=== PATIENT | female | born 1950 | race Caucasian/White ===

== ENCOUNTER 2016-12-17 07:00 | Inpatient (IN) | payer OTHER, MEDICARE ==
[~2016-12-17] VITALS: Ht 157.5 cm; Wt 92.5 kg
[~2016-12-17 07:00] MED LIST: ACIPHEX20 M1 PO; ADVAIR 250-501 EACH INH; ALLOPURINOL100 M1 PO; ASPIRIN EC81 M1 PO; CYMBALTA60 M1 PO; FERROUS SULFAT325 M3 PO; HYDROCHLOROTHIA25 M1 PO; LIPITOR10 M1 PO; LISINOPRIL20 M1 PO; PROAIR HFA8.5 GM INH; SINGULAIR10 M1 PO; SULINDAC PO; SYNTHROID25 MCG PO; TOPROL XL25 M1 PO
[2016-12-17] MEDS ORDERED: METOPROLOL SUCC25 M1 PO (14:47)
--- NOTE | 2016-12-17 15:21 | Admission Core Measures ---
Admission Meds I reviewed the following Meds: Current Medications Sig/[place] Start time Last Medication Dose Stop Time Status Admin Acetaminophen 975 MG ONCE 12/17 0000 NR (Tylenol) 12/17 2358 Albuterol Sulfate 2 PUF Q4-6 PRN PRN 12/17 1445 AC (Ventolin) Allopurinol 100 MG DAILY 12/18 1000 AC (Zyloprim) Atorvastatin Calcium 10 MG DAILY 12/18 1000 AC (Lipitor) Budesonide/ 2 PUF BID 12/17 2200 AC Formoterol Fumarate (Symbicort) Cefazolin Sodium 2,000 MG ONCE 12/17 0000 NR (Kefzol-Ancef Inj) 12/17 2358 Duloxetine HCl 60 MG DAILY 12/18 1000 AC (Cymbalta) Ferrous Sulfate 325 MG BID 12/17 2200 AC (Feosol) Hydrochlorothiazide 25 MG DAILY 12/18 1000 AC (Hydrodiuril) Levothyroxine Sodium 0.025 MG DAILY 12/18 1000 AC (Synthroid) Lisinopril 20 MG DAILY 12/18 1000 AC (Prinivil) Metoprolol Tartrate 12.5 MG DAILY 12/18 1000 AC (Lopressor) Montelukast Sodium 10 MG DAILY 12/18 1000 AC (Singulair) Omeprazole 20 MG BID 12/17 2200 AC (Prilosec) Oxycodone HCl 10 MG ONCE 12/17 0000 NR (Roxicodone) 12/17 2358 Acute Coronary Syndrome Inclusion Criteria ACS Diagnosis No Inpatient Core Measures LDL Reminder: If No, please order W/I first 24hr of stay Congestive Heart Failure Inclusion Criteria CHF Diagnosis No Cerebrovascular accident Inclusion Criteria CVA/TIA Diagnosis No Inpatient Core Measures Bedside Swallow Eval Reminder: If BSE failed, place ST order Antithrombotic Reminder: Order Antithrombotic Medication by end of day 2 Antithrombotic Reminder: Document Reason Antithrombotic Not ordered by end of day 2 AFIB/Flutter Reminder: If Present, add to problem list AFIB/Flutter Reminder: Order Anticoag Medication for pts with AFIB/Flutter Atherosclerosis Reminder: If Present, add to problem list LDL Reminder: If No, please order W/I first 24hr of stay PT Order Reminder: If No, please order Venous thromboembolism Inpatient Core Measures VTE Risk Factors: Age > 40, Surgery No Mech VTE prophylaxis d/t No contraindications No VTE Pharm Prophylaxis d/t No contraindications Inclusion Criteria - Per Current guidelines, there needs to be overlap - treatment for the first 5 days of Warfarin therapy. - Parenteral Anticoagulation (IV or SC) needs to be - given along with Warfarin therapy. VTE Diagnosis No VTE Type NONE VTE Confirmed by (Test) NONE Problem List As ranked by this Provider includes Assessment & Plan 1. Unilateral primary osteoarthritis, right knee HOME MEDS Home Med List Albuterol Sulfate (Proair Hfa) 90 MCG HFA.AER.AD 2 PUF INH Q4-6 PRN PRN ASTHMA (Reported) Allopurinol 100 MG TABLET 1 TAB PO DAILY GOUT (Reported) Aspirin (Ecotrin*) 81 MG TABLET.DR 1 TAB PO DAILY PROPHO (Reported) Atorvastatin Calcium (Lipitor) 10 MG TABLET 1 TAB PO DAILY CHOLESTEROL ( Reported) Duloxetine HCl (Cymbalta) 60 MG CAPSULE.DR 1 CAP PO DAILY PAIN (Reported) Ferrous Sulfate 325 MG (65 MG IRON) TABLET 1 TAB PO BID ANEMIA (Reported) Fluticasone/Salmeterol (Advair 250-50 Diskus) 250 MCG-50 MCG/DOSE BLST.W.DEV 1 PUF INH DAILY AASTHMA (Reported) Hydrochlorothiazide 25 MG TABLET 1 TAB PO DAILY HTN (Reported) Levothyroxine Sodium (Synthroid) 25 MCG TABLET 1 TAB PO DAILY HYPOTHYROID ( Reported) Lisinopril 20 MG TABLET 1 TAB PO DAILY HTN (Reported) Metoprolol Succinate 25 MG TAB 0.5 TAB PO DAILY HTN (Reported) Montelukast Sodium (Singulair) 10 MG TABLET 1 TAB PO DAILY ASTHMA (Reported) Rabeprazole Sodium (Aciphex) 20 MG TABLET.DR 1 TAB PO BID GERD (Reported) [SULINDAC] 200 MG PO BID INFLAMMATION (Reported) Discontinued Medications Metoprolol Succ XL (Toprol XL) 25 MG TAB 0.5 TAB PO DAILY HTN (Reported) Discontinued reason: Pt Decision, not taking
[2016-12-17] MEDS ORDERED: DILAUDID2 M1 PO (15:23)
[2016-12-17] MEDS ORDERED: MIRALAX17 G1 PO (15:23)
[2016-12-17] MEDS ORDERED: ASPIRIN EC325 M2 PO (15:23)
[2016-12-17] MEDS ORDERED: COLACE100 M1 PO (15:23)
--- NOTE | 2016-12-17 15:27 | Patient Discharge Instructions ---
Discharge Instructions General Discharge Information You were seen/treated for: Right knee pain related to unilateral primary osteoarthritis You had these procedures: Right total knee replacement Watch for these problems: Increasing pain despite the use of pain medication Increasing redness, warmth or swelling Drainage of any type from incision Inability to bear weight on operative leg Persistent nausea and vomiting Fever greater than 101.5 degrees Do not soak the wound: Yes No bath, but you may shower: Yes Other wound care: Please keep wound clean and dry. No ointments or lotions of any type on or near incision at any time. No exceptions. Your dressing will be changed by your nurse on the second day after your surgery. Daily dry dressing changes are recommended each day thereafter. Do not soak your wound in a bath at any time until otherwise indicated by your surgeon. You may shower, please dry wound immediately after shower with a clean towel. Special Instructions: Aspirin: You are taking this medication to help prevent blood clot formation. Please take with food to protect your stomach lining. Please take as directed. Constipation: Pain medication can cause constipation. Dr. Rosen has recommended that you take Colace and miralax each day. You may discontinue this medication if you develop loose stool or diarrhea. If you wish to continue this medication, it is available over the counter. If you are unable to move your bowels after several days, if you are unable to pass gas and are developing bloating, nausea, or vomiting as a result, please contact your doctor. Diet Continue normal diet: Yes Recommended Diet: Regular Activity Full Activity/No Limits: No Activity Self Limited: Yes Pounds, do NOT lift more than: 10 Activity Limited to: Weight bear as tolerated Acute Coronary Syndrome Inclusion Criteria At DC or during hospital stay patient has or had the following: ACS DIAGNOSIS No Discharge Core Measures Meds if any: Prescribed or Continued at Discharge Meds if any: NOT Prescribed or Continued at Discharge Congestive Heart Failure Inclusion Criteria At DC or during hospital stay patient has or had the following: CHF DIAGNOSIS No Discharge Core Measures Meds if any: Prescribed or Continued at Discharge Meds if any: NOT Prescribed or Continued at Discharge Cerebrovascular accident Inclusion Criteria At DC or during hospital stay patient has or had the following: CVA/TIA Diagnosis No Discharge Core Measures Meds if any: Prescribed or Continued at Discharge Meds if any: NOT Prescribed or Continued at Discharge Venous thromboembolism Inclusion Criteria VTE Diagnosis No VTE Type NONE VTE Confirmed by (Test) NONE Discharge Core Measures - Per Current guidelines, there needs to be overlap - treatment for the first 5 days of Warfarin therapy. - If discharged on Warfarin prior to 5 days of - overlap therapy, the patient will need to be - assessed for post discharge needs including - *Post discharge parental anticoagulation - *Warfarin and/or parental anticoagulation education - *Follow up date to check INR post discharge At least 5 days overlap therapy as Inpatient No Meds if any: Prescribed or Continued at Discharge Note: Overlap Therapy is Warfarin and Anticoagulant Meds if any: NOT Prescribed or Continued at Discharge
--- NOTE | 2016-12-17 15:28 | Surgical Discharge Summary ---
Visit Information Visit Dates Admission Date: 12/17/16 Discharge Date: 12/20/16 History of Present Illness Chief Complaint: Right knee pain related to unilateral primary osteoarthritis Surgical History Pertinent Surgical History: knee replacement Review of Systems: see h&p Hospital Course Course Attending Physician: EDINSON SMITH MD Primary Care Physician: ROSIE SIMON,Bradley Hospital Course: Patient was admitted to the hospital for an elective total joint replacement. The procedure was tolerated well and patient was transferred to a general surgical floor. Diet was advanced and tolerated, and the patient voided spontaneously. The patient was evaluated and treated by physical therapy. At the time of hospital discharge, the vital signs were stable, neurovascular status was intact, and pain was controlled with the use of oral pain medications. The patient was discharged to the [facility] on post-op day#3. Complications: None Allergies: Coded Allergies: Sulfa (Sulfonamide Antibiotics) (Severe, HIVES 12/08/16) erythromycin base (Severe, HIVES 12/08/16) Disposition Summary Disposition Principal Diagnosis: Right knee unilateral primary osteoarthritis Additional Diagnosis: None Discharge Disposition: SNF Discharge Instructions General Discharge Information Code Status: Full Code Patient's Diet: Heart healthy, advance as tolerated Patient's Activity: WBAT Follow-Up Instructions/Appts: Follow up with Dr. Smith in 6 weeks from date of surgery. Please call his office to arrange and/or confirm this appointment. Medications at Discharge Discharge Medications: Stop taking the following medications: Aspirin (Ecotrin*) 81 MG TABLET.DR ORAL DAILY Metoprolol Succ XL (Toprol XL) 25 MG TAB ORAL DAILY Continue taking these medications: Allopurinol (Allopurinol) 100 MG TABLET 1 Tablet ORAL DAILY Duloxetine HCl (Cymbalta) 60 MG CAPSULE. 1 Capsule ORAL DAILY Ferrous Sulfate (Ferrous Sulfate) 325 MG (65 MG IRON) TABLET 1 Tablet ORAL TWICE DAILY [SULINDAC] 200 Milligram ORAL TWICE DAILY Rabeprazole Sodium (Aciphex) 20 MG TABLET. 1 Tablet ORAL TWICE DAILY Hydrochlorothiazide (Hydrochlorothiazide) 25 MG TABLET 1 Tablet ORAL DAILY Lisinopril (Lisinopril) 20 MG TABLET 1 Tablet ORAL DAILY Atorvastatin Calcium (Lipitor) 10 MG TABLET 1 Tablet ORAL DAILY Levothyroxine Sodium (Synthroid) 25 MCG TABLET 1 Tablet ORAL DAILY Fluticasone/Salmeterol (Advair 250-50 Diskus) 250 MCG-50 MCG/DOSE BLST.W.DEV 1 Puff Inhale through mouth DAILY Albuterol Sulfate (Proair Hfa) 90 MCG HFA.AER.AD 2 Puff Inhale through mouth EVERY 4-6 HOURS NEEDED as needed for ASTHMA Montelukast Sodium (Singulair) 10 MG TABLET 1 Tablet ORAL DAILY Metoprolol Succinate (Metoprolol Succinate) 25 MG TAB 0.5 Tablet ORAL DAILY Qty = 30 Start taking the following new medications: Aspirin (Ecotrin*) 325 MG TABLET.DR 1 Tablet ORAL TWICE DAILY Qty = 60 No Refills Docusate Sodium (Colace) 100 MG CAPSULE 1 Capsule ORAL TWICE DAILY Qty = 14 No Refills Instructions: DISCONTINUE USE IF YOU DEVELOP LOOSE STOOL OR DIARRHEA Hydromorphone HCl (Dilaudid) 2 MG TABLET 1-2 Tablet ORAL EVERY 4-6 HOURS NEEDED as needed for PAIN Qty = 36 No Refills Polyethylene Glycol 3350 (Miralax) 17 GRAM POWD.PACK 1 Packet ORAL DAILY Qty = 7 No Refills Instructions: dissolve in water, DISCONTINUE USE IF YOU DEVELOP LOOSE STOOL OR DIARRHEA
--- NOTE | 2016-12-17 17:30 | Operative Report ---
Operative/Inv Procedure Report Surgery Date: 12/17/16 Name of Procedure: Right total knee replacement Pre-Operative Diagnosis: Primary right knee DJD Post-Operative Diagnosis: Same Estimated Blood Loss: 50ml to 100ml Surgeon/Devulcanizer Operator: SARAH SIMON,EDINSON Garcia Anesthesia: block Operative/Procedure Note Note: Description of Procedure: The patient was taken to the operating room and positively identified. After induction of spinal anesthesia and administration of appropriate pre-operative antibiotics, the patient was positioned supine on the operating room table and all bony prominences were well padded. A well-padded pneumatic tourniquet was placed on the right upper thigh. After performing a surgical timeout, the right lower extremity was prepped and draped in the usual sterile fashion. After exsanguination with Esmarch the tourniquet was inflated to 250mm of mercury. A standard medial parapatellar approach was made to the knee. This was carried down through skin and subcutaneous tissue to the level of the fascia. Meticulous hemostasis was maintained with Bovie electrocautery. The extensor mechanism and patellar retinaculum were opened sharply and the patella was everted. The infrapatellar fat was resected in order to improve exposure. Osteophytes were trimmed from the patella and femoral condyles and the patella was re-everted and tucked laterally. A medial release was performed and the cruciate ligaments were resected. The tibia was then subluxed anteriorly. Utilizing the appropriate extra-medullary guide, the proximal tibia was trimmed perpendicular to the long axis of the tibial shaft. Attention was then turned to the femur. After opening the medullary canal, the distal femoral cut was made in 6 degrees of valgus utilizing the appropriate intra-medullary guide. The extension gap was checked and found to be appropriate. The femur was then sized and the remainder of the femoral cuts were made with a size 3 4-in-1 femoral cutting guide. The flexion gap was checked and found to be symmetric and appropriate. The knee was then trialed with a size 3 femoral component, a size 3 tibial component and a size 11 mm TS polyethylene insert. The patella was not resurfaced due to the fact that it was extremely thin and in poor condition. I was afraid of an intraoperative or postoperative fracture. This yielded excellent range of motion, stability and patellar tracking. All trial components were removed and the knee was copiously irrigated with sterile saline. All components were cemented into place with Marquis Simplex cement. All the components were of the [place] [employer] knee system of the above stated sizes. The knee was again irrigated after cementation. The extensor mechanism and patellar retinaculum were repaired using interrupted #1 vicryl suture. The skin was re-approximated with 2-0 vicryl and closed with tennille. A sterile dressing was applied, the tourniquet was deflated, the patient was awakened and taken to the recovery room in satisfactory condition.
--- NOTE | 2016-12-17 20:07 | PN- Orthopedic ---
Subjective Subjective: POSTOP CHECK PAIN, MORE IN R HIP THAN SURGICAL KNEE. NO N/V/CP/SOB. NO OOB YET. Objective Vital Signs and I&Os 140/72 HR 82 Physical Exam: GEN: NAD CARD: S1S2 RRR PULM: CTAB ABD: soft, nt EXT: Rle dressing CDI, ONQ in place, ttp at incision, feet warm, palp dp bl, sensation grossly intact, +dorsi/plantar flexion, calves soft nt, ALPS on bl Assessment/Plan Assessment/Plan A: 66yoF POD #0 sp R TKR, stable with postop pain P: - DVT ppx: ASA - reg diet as tolerated - prn pain meds - OOB, ambulate, WBAT, PT - abx x23hr postop ppx - am labs - OnQ pump - home meds - will dw attending Core Measures/Miscellaneous Venous Thromboembolism VTE Risk Factors: Surgery VTE Contraindications: No Contraindications VTE Diagnosis: No VTE Type: NONE VTE Confirmed by (Test): NONE Beta Deb Is Beta Deb a Home Med? Yes If Yes, Was This Ordered Today? Yes Antibiotics Is Patient on Antibiotics? Yes If Yes: prophylaxis
[2016-12-17 22:17] VITALS: BP 140/72
[2016-12-18] VITALS: BP 130/70
[2016-12-18 02:26] VITALS: BP 120/70
[2016-12-18 06:43] VITALS: BP 116/70
[2016-12-18 08:21] VITALS: BP 122/60
[2016-12-18 08:47] LABS: ABSOLUTE BASOPHIL COUNT 0 /CUMM (0.0-0.2); ABSOLUTE EOSINOPHIL COUNT 0 /CUMM (0.0-0.7); ABSOLUTE GRANULOCYTE CT 7.1 /CUMM (1.4-6.5); ABSOLUTE LYMPH COUNT 0.6 /CUMM (1.2-3.4); ABSOLUTE MONOCYTE COUNT 0.3 /CUMM (0.10-0.60); BASOPHIL % 0 % (0.0-2.0); EOSINOPHIL % 0 % (0-5); HEMATOCRIT 31.7 % (37-47); MEAN CORPUSCULAR HGB 30.5 PG (27.0-31.0); MEAN CORPUSCULAR HGB CONC 33.3 G/DL (33.0-37.0); MEAN CORPUSCULAR VOLUME 91.8 FL (81.0-99.0); MEAN PLATELET VOLUME 7.2 FL (7.4-10.4); RBC DISTRIBUTION WIDTH 13.7 % (11.5-14.5); RED BLOOD CELL CT 3.45 /CUMM (4.20-5.40); WHITE BLOOD CELL COUNT 7.9 /CUMM (4.8-10.8)
[2016-12-18 08:58] LABS: GRANULOCYTE % 89.4 % (42.2-75.2); PLATELET COUNT 292 /CUMM (130-400)
--- NOTE | 2016-12-18 09:50 | PN- Orthopedic ---
Subjective Subjective: Patient comfortable, no acute events overnight, right knee pain is mild to moderate. Objective Vital Signs and I&Os Vital Signs Date Time Temp Pulse Resp B/P B/P Pulse O2 O2 Flow FiO2 Mean Ox Delivery Rate 12/18 0821 97.8 93 20 122/60 96 Room Air 12/18 0643 98.5 87 20 116/70 95 Room Air 12/18 0226 98.8 88 20 120/70 96 Room Air 12/18 0000 CPAP 12/18 0000 98.8 81 20 130/70 98 Room Air 12/17 2234 Room Air 12/17 2217 97.6 77 20 140/72 97 Intake & Output 12/18 1600 12/18 0800 12/18 0000 12/17 1600 12/17 0800 12/17 0000 Intake Total 1080 780 Output Total 200 150 Balance 880 630 Intake, IV 600 300 Intake, Oral 480 480 Number 0 Bowel Movements Output, Urine 200 150 Patient 204 lb Weight Physical Exam: Well-developed well-nourished no apparent distress. HEENT: Atraumatic, extraocular motion intact Neck: Supple, no lymphadenopathy Respiratory: No respiratory distress Extremities: No edema right lower extremity dressing in place, Range of motion is 0-60. Compression wrap in place. ALPS in place Neurovascularly intact distally Bilateral calves are supple, nontender. Neuro: Alert and oriented x3 Psych: Mood affect normal, normal memory normal judgment. Skin: Warm and dry, no rash on exposed skin Results Last 48 Hours of Labs: Laboratory Tests 12/18 0630 Chemistry Sodium (137 - 145 mmol/L) 138 Potassium (3.5 - 5.1 mmol/L) 4.5 Chloride (98 - 107 mmol/L) 105 Carbon Dioxide (22 - 30 mmol/L) 22 Anion Gap (5 - 16) 11 BUN (7 - 17 mg/dL) 28 H Creatinine (0.5 - 1.0 mg/dL) 1.0 Estimated GFR (>60 ml/min) 55 L BUN/Creatinine Ratio (7 - 25 %) 28.0 H Hematology CBC w Diff NO MAN DIFF REQ WBC (4.8 - 10.8 /CUMM) 7.9 RBC (4.20 - 5.40 /CUMM) 3.45 L Hgb (12.0 - 16.0 G/DL) 10.6 L Hct (37 - 47 %) 31.7 L MCV (81.0 - 99.0 FL) 91.8 MCH (27.0 - 31.0 PG) 30.5 RDW (11.5 - 14.5 %) 13.7 Plt Count (130 - 400 /CUMM) 292 MPV (7.4 - 10.4 FL) 7.2 L Gran % (42.2 - 75.2 %) 89.4 H Lymphocytes % (20.5 - 51.1 %) 7.2 L Monocytes % (1.7 - 9.3 %) 3.4 Eosinophils % (0 - 5 %) 0 Basophils % (0.0 - 2.0 %) 0 L Absolute Granulocytes (1.4 - 6.5 /CUMM) 7.1 H Absolute Lymphocytes (1.2 - 3.4 /CUMM) 0.6 L Absolute Monocytes (0.10 - 0.60 /CUMM) 0.3 Absolute Eosinophils (0.0 - 0.7 /CUMM) 0 Absolute Basophils (0.0 - 0.2 /CUMM) 0 PUBS MCHC (33.0 - 37.0 G/DL) 33.3 Assessment/Plan Assessment/Plan Postoperative day #1 status post right total knee arthroplasty Orthopedically stable. This morning's labs are okay. Continue DVT prophylaxis with aspirin Continue on Q, discontinue tomorrow. Dressing change tomorrow. DC IV fluids as patient is tolerating a normal diet. Pain medication as needed Unavailable physical therapy, weightbearing as tolerated Plan for short-term rehabilitation Thursday Core Measures/Miscellaneous Venous Thromboembolism VTE Risk Factors: Surgery VTE Contraindications: No Contraindications VTE Diagnosis: No VTE Type: NONE VTE Confirmed by (Test): NONE Beta Deb Is Beta Deb a Home Med? Yes If Yes, Was This Ordered Today? Yes Antibiotics Is Patient on Antibiotics? Yes If Yes: prophylaxis
[2016-12-18 13:56] VITALS: BP 120/80
[2016-12-18 22:19] VITALS: BP 112/58
[2016-12-19 06:43] VITALS: BP 130/70
--- NOTE | 2016-12-19 07:42 | PN- Orthopedic ---
Subjective Subjective: POD #2 s/p right TKR. Resting comfortably in bed. Minimal pain to right knee. Onq pump removed this morning by RN. Denies CP/SOB, N/V, F/C. Ambulated with PT yesterday. Had BM yesterday. Objective Vital Signs and I&Os Vital Signs Date Time Temp Pulse Resp B/P B/P Pulse O2 O2 Flow FiO2 Mean Ox Delivery Rate 12/19 0643 98.1 70 20 130/70 96 Room Air 12/19 0000 CPAP 12/18 2219 97.8 78 20 112/58 95 Room Air 12/18 1356 98.9 76 20 120/80 97 Room Air 12/18 1215 Room Air 12/18 1045 92 108/58 12/18 1044 92 108/58 12/18 0821 97.8 93 20 122/60 96 Room Air Intake & Output 12/19 1600 12/19 0800 12/19 0000 12/18 1600 12/18 0800 12/18 0000 Intake Total 260 738 353 8844 780 Output Total 350 200 200 150 Balance 260 230 480 880 630 Intake, IV 20 100 200 600 300 Intake, Oral 240 480 480 480 480 Number 0 0 Bowel Movements Output, Urine 350 200 200 150 Patient 204 lb Weight Physical Exam: Gen: AAOx3 in NAD Cor: S1+S2+ Lungs: CTA savanah Abd: soft, NT, ND, +BS x4 Ext: no edema or calf tenderness to savanah lower extremities. Right lower extremity dressing removed. Incision intact with tennille. No drainage or surrounding erythema noted. Current Medications: Current Medications Sig/[place] Start time Last Medication Dose Route Stop Time Status Admin Acetaminophen 1,000 MG Q6H 12/17 2100 DC 12/18 IV 12/18 1501 1651 Albuterol Sulfate 2 PUF Q4-6 PRN PRN 12/17 2029 AC INH Allopurinol 100 MG DAILY 12/18 1000 DC PO Allopurinol 100 MG DAILY 12/18 1000 AC 12/18 PO 1043 Aspirin 325 MG BID 12/170 AC 12/18 PO 2118 Atorvastatin Calcium 10 MG 1700 12/18 1700 AC 12/18 PO 1650 Atorvastatin Calcium 10 MG DAILY 12/18 1000 DC PO Budesonide/ 2 PUF BID 12/17 2199 AC 12/18 Formoterol Fumarate INH 2118 Dextrose/Sodium 1,000 ML .[id number] 12/17 2030 DC 12/18 Chloride IV 0640 Docusate Sodium 100 MG BID 12/170 AC 12/18 PO 2117 Duloxetine HCl 60 MG DAILY 12/18 1000 DC PO Duloxetine HCl 60 MG DAILY 12/18 1000 AC 12/18 PO 1044 Ferrous Sulfate 325 MG BID 12/170 AC 12/18 PO 8 Hydrochlorothiazide 25 MG DAILY 12/18 1000 DC PO Hydrochlorothiazide 25 MG DAILY 12/18 1000 AC 12/18 PO 1044 Hydromorphone HCl 2 MG Q4P PRN 12/17 2030 AC PO Hydromorphone HCl 4 MG Q4P PRN 12/17 2030 AC 12/19 PO 0556 Ketorolac 15 MG Q8P PRN 12/17 2100 AC 12/19 Tromethamine IV 12/20 2058 0113 Levothyroxine Sodium 0.025 MG DAILY 12/18 1000 DC PO Levothyroxine Sodium 0.025 MG DAILY AC 12/18 0700 AC 12/19 PO 0556 Lisinopril 20 MG DAILY 12/18 1000 DC PO Lisinopril 20 MG DAILY 12/18 1000 AC 12/18 PO 1044 Metoprolol Succinate 12.5 MG DAILY 12/18 1000 AC 12/18 PO 1045 Metoprolol Tartrate 12.5 MG DAILY 12/18 1000 DC PO Montelukast Sodium 10 MG AT BEDTIME 12/18 2199 AC 12/18 PO 8 Montelukast Sodium 10 MG DAILY 12/18 1000 DC PO Morphine Sulfate 2 MG Q2P PRN 12/17 2029 AC IV Omeprazole 20 MG BID 12/17 2199 AC 12/18 PO 2117 Ondansetron HCl 4 MG Q6P PRN 12/17 2029 AC IV Polyethylene Glycol 17 GM DAILY 12/18 1000 AC 12/18 PO 1043 Promethazine HCl 12.5 MG Q6P PRN 12/17 2029 AC IV 12/24 1514 Ropivacaine 500 ML ONCE ONE 12/17 1899 AC ON-Q Ball 1 BAG INJ 12/19 2058 Results Last 48 Hours of Labs: Laboratory Tests 12/18 629 Chemistry Sodium (137 - 145 mmol/L) 138 Potassium (3.5 - 5.1 mmol/L) 4.5 Chloride (98 - 107 mmol/L) 105 Carbon Dioxide (22 - 30 mmol/L) 22 Anion Gap (5 - 16) 11 BUN (7 - 17 mg/dL) 28 H Creatinine (0.5 - 1.0 mg/dL) 1.0 Estimated GFR (>60 ml/min) 55 L BUN/Creatinine Ratio (7 - 25 %) 28.0 H Hematology CBC w Diff NO MAN DIFF REQ WBC (4.8 - 10.8 /CUMM) 7.9 RBC (4.20 - 5.40 /CUMM) 3.45 L Hgb (12.0 - 16.0 G/DL) 10.6 L Hct (37 - 47 %) 31.7 L MCV (81.0 - 99.0 FL) 91.8 MCH (27.0 - 31.0 PG) 30.5 RDW (11.5 - 14.5 %) 13.7 Plt Count (130 - 400 /CUMM) 292 MPV (7.4 - 10.4 FL) 7.2 L Gran % (42.2 - 75.2 %) 89.4 H Lymphocytes % (20.5 - 51.1 %) 7.2 L Monocytes % (1.7 - 9.3 %) 3.4 Eosinophils % (0 - 5 %) 0 Basophils % (0.0 - 2.0 %) 0 L Absolute Granulocytes (1.4 - 6.5 /CUMM) 7.1 H Absolute Lymphocytes (1.2 - 3.4 /CUMM) 0.6 L Absolute Monocytes (0.10 - 0.60 /CUMM) 0.3 Absolute Eosinophils (0.0 - 0.7 /CUMM) 0 Absolute Basophils (0.0 - 0.2 /CUMM) 0 PUBS MCHC (33.0 - 37.0 G/DL) 33.3 Assessment/Plan Assessment/Plan A: POD #2 s/p right TKR; AVSS. Plan: D/C to STR tomorrow (medicare). Continue PT. Daily dry dressing changes to right knee. Core Measures/Miscellaneous Venous Thromboembolism VTE Risk Factors: Surgery VTE Contraindications: No Contraindications VTE Diagnosis: No VTE Type: NONE VTE Confirmed by (Test): NONE Beta Deb Is Beta Deb a Home Med? Yes If Yes, Was This Ordered Today? Yes Antibiotics Is Patient on Antibiotics? Yes If Yes: prophylaxis
[2016-12-19 14:04] VITALS: BP 120/80
[2016-12-19 22:50] VITALS: BP 130/70
[2016-12-20 06:00] VITALS: BP 132/64
--- NOTE | 2016-12-20 09:34 | PN- Orthopedic ---
Subjective Subjective: No complaints. Pain controlled. Out of bed with PT without dizziness. No shortness of breath. No chest pains. Voiding well, although incontinent at times. She reports bm occurred post-op day#1. Tolerating diet. No nausea. Anticipates discharge to the [facility] today. Objective Vital Signs and I&Os Vital Signs Date Time Temp Pulse Resp B/P B/P Pulse O2 O2 Flow FiO2 Mean Ox Delivery Rate 12/20 06 98.6 69 18 132/64 97 Room Air 12/20 0000 95 Room Air 12/19 2250 98.9 74 20 130/70 95 Room Air 12/19 1404 97.6 73 20 120/80 95 Room Air Intake & Output 12/20 1600 12/20 0800 12/20 0000 12/19 1600 12/19 0800 12/19 0000 Intake Total 100 240 480 260 580 Output Total 500 350 600 350 Balance -400 -110 -120 260 230 Intake, IV 0 0 20 100 Intake, Oral 100 240 480 240 480 Number 0 0 Bowel Movements Output, Urine 500 350 600 350 Physical Exam: General - alert & oriented. comfortable. no acute distress. Lungs - clear bilaterally. no w/r/r. Cardiac - s1s2. reg. Abdomen - soft. nontender. Extremities - dressing changed, right knee. incision well approximated with tennille. no erythema or exudates. nvi. calves soft and nontender b/l. Current Medications: Current Medications Sig/[place] Start time Last Medication Dose Route Stop Time Status Admin Albuterol Sulfate 2 PUF Q4-6 PRN PRN 12/17 2029 AC INH Allopurinol 100 MG DAILY 12/18 1000 AC 12/19 PO 09 Aspirin 325 MG BID 12/17 2199 AC 12/19 PO 2054 Atorvastatin Calcium 10 MG 1700 12/18 1700 AC 12/19 PO 181 Budesonide/ 2 PUF BID 12/17 2199 AC 12/19 Formoterol Fumarate INH 2056 Docusate Sodium 100 MG BID 12/17 2199 AC 12/19 PO 2054 Duloxetine HCl 60 MG DAILY 12/18 1000 AC 12/19 PO 0911 Ferrous Sulfate 325 MG BID 12/17 2199 AC 12/19 PO 2055 Hydrochlorothiazide 25 MG DAILY 12/18 1000 AC 12/19 PO 09 Hydromorphone HCl 2 MG Q4P PRN 12/17 2029 AC 12/19 PO 1810 Hydromorphone HCl 4 MG Q4P PRN 12/17 2030 AC 12/20 PO 0730 Ketorolac 15 MG Q8P PRN 12/17 2100 AC 12/19 Tromethamine IV 12/20 2058 0113 Levothyroxine Sodium 0.025 MG DAILY AC 12/18 0700 AC 12/20 PO 0658 Lisinopril 20 MG DAILY 12/18 1000 AC 12/19 PO 0911 Metoprolol Succinate 12.5 MG DAILY 12/18 1000 AC 12/19 PO 0910 Montelukast Sodium 10 MG AT BEDTIME 12/18 2200 AC 12/19 PO 2056 Morphine Sulfate 2 MG Q2P PRN 12/17 2029 AC IV Omeprazole 20 MG BID 12/17 2199 AC 12/19 PO 2055 Ondansetron HCl 4 MG Q6P PRN 12/17 2029 AC IV Polyethylene Glycol 17 GM DAILY 12/18 1000 AC 12/19 PO 0910 Promethazine HCl 12.5 MG Q6P PRN 12/17 2029 AC IV 12/24 1514 Ropivacaine 500 ML ONCE ONE 12/17 1899 DC ON-Q Ball 1 BAG INJ 12/19 2058 Assessment/Plan Assessment/Plan This 66 year old female is POD #3 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 Yes If Yes, Was This Ordered Today? Yes Antibiotics Is Patient on Antibiotics? Yes If Yes: prophylaxis
[2016-12-20 11:27] VITALS: BP 132/64
== END 2016-12-20 11:35 | DRG 470 ==
LOC: SDA 07:00 → EDBD 07:00 → 2NA 09:19 → SDA 09:19 → ENRESERV 17:45 → 2NA 20:06 → ENPENDDIS 12-20 10:10 → 2NA 12-20 11:35
PROVIDERS: Nurse Practitioner; ADMIT Orthopaedic Surgery
PROC: 0SRC0J9 Replacement of Right Knee Joint with Synthetic Substitute, Cemented, Open Approach (ICD-10-PCS; principal; 2016-12-17)
PROC: 3E0T3CZ (ICD-10-PCS; 2016-12-17)
DX: M17.11 Unilateral primary osteoarthritis, right knee (principal); E11.40 Type 2 diabetes mellitus with diabetic neuropathy, unspecified; G47.33 Obstructive sleep apnea (adult) (pediatric); J45.909 Unspecified asthma, uncomplicated; I10 Essential (primary) hypertension; E78.00 Pure hypercholesterolemia, unspecified; K21.9 Gastro-esophageal reflux disease without esophagitis; M10.9 Gout, unspecified; Z85.3 Personal history of malignant neoplasm of breast; E78.5 Hyperlipidemia, unspecified
CPT/HCPCS: 2NAP; 36415; 82436; 87086; 97110-GO; 97116-GO; 97161-GP; 97530-GO; C1713; J0131; J0690; J2405; J2550; J2795; J3490; J7042